=== PATIENT | female | born 1960 | race Caucasian/White ===

== ENCOUNTER → 2016-08-01 | Outpatient (CLI) | payer BC ==
[2016-08-01 17:49] LABS: BASOPHILS # (AUTO) 0.03 10*3/UL; BASOPHILS % (AUTO) 0.5 % (0-1); EOSINOPHILS # (AUTO) 0.31 10*3/UL; EOSINOPHILS % (AUTO) 4.9 % (0-8); HEMATOCRIT 42.1 % (37.0-47.0); HEMOGLOBIN 14.3 g/dL (12.0-16.0); LYMPHOCYTES # (AUTO) 1.92 10*3/uL; MEAN CORPUSCULAR HEMOGLOBIN 33.7 PG (27-31); MEAN CORPUSCULAR VOLUME 99.3 FL (81-99); MEAN PLATELET VOLUME 9.6 FL (7.4-12.2); MONOCYTES # (AUTO) 0.55 10*3/UL (0.3-0.8); MONOCYTES % (AUTO) 8.6 % (5-15); NEUTROPHILS # (AUTO) 3.55 10*3/UL; NEUTROPHILS % (AUTO) 55.7 % (50-80); RED BLOOD COUNT 4.24 10^6/uL (4.20-5.40)
[2016-08-01 17:54] LABS: BLOOD UREA NITROGEN 17 mg/dL (7-22); BUN/CREATININE RATIO 21.25 (6-20); EST GLOMERULAR FILTRATION > 60 (>60 ml/min/1.73m(2)); LIPASE 214 IU/L (23-300); SERUM ALBUMIN 4.4 g/dL (3.5-4.8)
[2016-08-01 17:57] LABS: PLATELET MORPHOLOGY COMMENT NORMAL MORPHOLOGY (NORM); RBC MORPHOLOGY COMMENT NORMAL MORPHOLOGY (NORM); WBC MORPHOLOGY COMMENT NORMAL MORPHOLOGY (NORM)
== END ==
LOC: MOB LAB 15:41
PROVIDERS: ATTEND Nurse Practitioner Women's Health
DX: R10.84 Generalized abdominal pain (principal)
CPT/HCPCS: 36415; 80053; 82150; 83690; 85025

== ENCOUNTER → 2016-08-05 | Outpatient (CLI) | payer BC ==
--- NOTE | 2016-08-05 10:07 | DI ---
GALLBLADDER AND LIVER ULTRASOUND, 08/05/2016 8:57 AM: Clinical History: Abdominal pain. Previous Exam: None at this facility. Technique: Scans are performed through the right upper quadrant in multiple projections. The patient was rolled from side to side and the gallbladder was balloted with the probe to facilitate visualizat ion of small gallstones. The gallbladder is well distended and has a normal wall thickness. There are no gallstones. The commo n bile duct measures 3 The pancreas is visualized from the head to the body and is normal. The visual ized portions of the liver, right kidney, and IVC are normal. The aorta is normal. Readin. Normal gallbladder ultrasound. 2. The liver, right kidney, pancreas, IVC, and aorta are also normal.
== END ==
LOC: US 08:52
PROVIDERS: ATTEND Nurse Practitioner Women's Health
DX: R10.84 Generalized abdominal pain (principal)
CPT/HCPCS: 76705